=== PATIENT | female | born 1980 | race Caucasian/White ===

== ENCOUNTER 2017-05-07 21:59 | Emergency (ER) | payer SELFPAY ==
[~2017-05-07] VITALS: Ht 170.2 cm; Wt 68.0 kg
[2017-05-07] MEDS ORDERED: SYNTHROID25 MCG ORAL (22:22)
[2017-05-07 22:28] VITALS: BP 152/94
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
[2017-05-07 23:34] VITALS: BP 152/94
== END 2017-05-07 23:24 | disposition home or self-care (01) ==
LOC: EMR 22:32
DX: R41.82 Altered mental status, unspecified (principal)
CPT/HCPCS: 80300; 99282

== ENCOUNTER 2017-09-27 12:58 | Emergency (ER) | payer SELFPAY ==
[~2017-09-27] VITALS: Ht 165.1 cm; Wt 65.8 kg
[~2017-09-27 12:58] MED LIST: SYNTHROID25 MCG ORAL
[2017-09-27 13:02] VITALS: BP 105/66
--- NOTE | 2017-09-27 13:18 | Emergency Room Report ---
History of Present Illness General Chief Complaint: Medication Refill Present Illness HPI 36-year-old female presents to the emergency department requesting medication refill for hypothyroid. Patient reports she takes 90 mcg of Synthroid daily. Patient states she's been out of her medication for 3 days. She states that she recently moved from [place] and has not established herself with primary care. Patient denies weight gain, lethargy, nausea, vomiting, abdominal pain. Denies CP, Palpitations, LOC, AMS, dizziness, Changes in Vision, Sensation, paresthesias, or a sudden severe headache. Allergies: Coded Allergies: No Known Allergies (Unverified , 05/07/17) Patient History Past Medical History: see triage record Past Surgical History: none Pertinent Family History: none Now: No Immunizations: UTD Reviewed Nursing Documentation: PMH: Agreed, PSxH: Agreed Review of Systems All Other Systems: negative except mentioned in HPI Physical Exam Vital Signs Date Time Temp Pulse Resp B/P (MAP) Pulse Ox O2 Delivery O2 Flow Rate FiO2 09/27/17 13:00 98.1 85 20 105/66 99 Room Air Sp02 EP Interpretation: reviewed, normal General Appearance: no apparent distress, alert, GCS 15, non-toxic Head: normocephalic, atraumatic Eyes: bilateral eye normal inspection, bilateral eye PERRL ENT: hearing grossly normal, normal voice Neck: full range of motion Respiratory: chest non-tender, lungs clear, normal breath sounds, speaking full sentences Cardiovascular #1: regular rate, rhythm Rectal: deferred Musculoskeletal: back normal, gait/station normal, normal range of motion, non- tender Neurologic: alert, oriented x3, responsive, motor strength/tone normal, sensory intact, speech normal, grossly normal Psychiatric: judgement/insight normal Skin: normal color, no rash, warm/dry, well hydrated Medical Decision Making PA Attestation Dr. Parker is my supervising Physician whom patient management has been discussed with. Diagnostic Impression: Primary Impression: Encounter for medication refill ER Course 36-year-old female presents to the emergency department requesting medication refill for hypothyroid. Patient reports she takes 90 mcg of Synthroid daily. Patient states she's been out of her medication for 3 days. She states that she recently moved from [place] and has not established herself with primary care. Patient denies weight gain, lethargy, nausea, vomiting, abdominal pain. Denies CP, Palpitations, LOC, AMS, dizziness, Changes in Vision, Sensation, paresthesias, or a sudden severe headache. Ddx considered but are not limited to: drug seeking, OD, hypothyroid, non- compliance just to name a few. Vital signs: are WNL, pt. is afebrile H&PE are most consistent with need for medication refill. ORDERS: none required at this time, the diagnosis is clinical ED INTERVENTIONS: None required at this time. DISCHARGE: At this time pt. is stable for d/c to home. Will provide printed patient care instructions, and any necessary prescriptions. Care plan and follow up instructions have been discussed with the patient prior to discharge. Last Vital Signs Date Time Temp Pulse Resp B/P (MAP) Pulse Ox O2 Delivery O2 Flow Rate FiO2 09/27/17 13:02 98.1 20 105/66 99 Room Air 09/27/17 13:00 85 Disposition: HOME, SELF-CARE Condition: Stable Scripts Levothyroxine Sodium* (SYNTHROID*) 88 Mcg Tablet 88 MCG ORAL DAILY for 30 Days, TAB Take in the morning on an empty stomach, at least 30 minutes before food. Prov: Suly Pritchard 09/27/17 Patient Instructions: Medicine Refill at the Emergency Department Additional Instructions: Take medications as directed. Follow up with a Primary Care Provider in 3-5 days, even if your symptoms have resolved. --Please review list of primary care clinics, if you do not already have a primary care provider Return sooner to ED if new symptoms occur, or current symptoms become worse. - Please note that this Emergency Department Report was dictated using [employer] food cashier technology software, occasionally this can lead to erroneous entry secondary to interpretation by the dictation equipment. Suly Pritchard Sep 27, 2017 13:18
[2017-09-27] MEDS ORDERED: SYNTHROID88 MCG ORAL (13:19)
[2017-09-27 13:24] VITALS: BP 105/66
== END 2017-09-27 13:25 | disposition home or self-care (01) ==
LOC: EMR 13:25
DX: E03.9 Hypothyroidism, unspecified (principal); Z76.0 Encounter for issue of repeat prescription
CPT/HCPCS: 99283